=== PATIENT | male | born 1960 | race Caucasian/White ===

== ENCOUNTER 2018-04-17 10:06 | Emergency (ER) | payer SELFPAY ==
[~2018-04-17] VITALS: Ht 170.2 cm; Wt 88.9 kg
[~2018-04-17 10:06] MED LIST: ATEN-102 PO; BENA20 PO; CLOP75TA PO; GEMF600 PO; IBUP-232 PO; LOVA40TA PO
[2018-04-17 10:13] VITALS: BP 149/88; PULSE 57; RESP 18; TEMP 98; O2SAT 96
[2018-04-17] MEDS ORDERED: PRAV40TA2 PO (10:37)
[2018-04-17] MEDS ORDERED: GEMF600 PO (10:37)
[2018-04-17] MEDS ORDERED: BENA20TA PO (10:37)
[2018-04-17] MEDS ORDERED: ATEN50TA PO (10:37)
[2018-04-17] MEDS ORDERED: PLAV75TA29 PO (10:37)
[2018-04-17] MEDS ORDERED: MECLIZINE HCL 25 MG TAB PO ONE (11:45)
[2018-04-17] MEDS ORDERED: MECL-62 PO (11:54)
--- NOTE | 2018-04-17 11:54 | PD ---
HPI Chief Complaint: Dizziness Time Seen by Provider: 10:58 Travel History International Travel<30 days: No Contact w/Intl Traveler<30days: No Traveled to known affect area: No History of Present Illness HPI Is a 57-year-old man presents to the emergency department complaining of intermittent dizziness. Symptoms started this morning. The worse when he moves his head certain ways, but are improved if he keeps his head steady. He states still he has no symptoms. He has never had similar symptoms before. Otherwise had been feeling generally well and healthy. Does have a history of TIA in the past, is on Plavix now. The symptoms were unilateral numbness and weakness. No recent similar symptoms. Recent illness or injury. No numbness tingling weakness or other associated symptoms. No changes to hearing or vision. History Past Medical History Narrative Medical Hypertension Hyperlipidemia History of TIA Influenza Vaccination: No Social History Alcohol Use: No Tobacco Use: No Allergies-Medications (Allergen,Severity, Reaction): Coded Allergies: No Known Allergies (Verified Adverse Reaction, Unknown, 04/17/18) Reported Meds & Prescriptions Reported Meds & Active Scripts Active Reported Pravastatin 40 Mg Tab 80 Mg PO DAILY Lopid (Gemfibrozil) 600 Mg Tab 300 Mg PO DAILY Take 30 minutes prior to breakfast and dinner Plavix (Clopidogrel Bisulfate) 75 Mg Tab 75 Mg PO DAILY Benazepril (Benazepril HCl) 20 Mg Tab 20 Mg PO DAILY Atenolol 50 Mg Tab 50 Mg PO DAILY Review of Systems Except as stated in HPI: all other systems reviewed are Neg Physical Exam Narrative GENERAL: Well-appearing 57-year-old man, no acute distress. SKIN: Focused skin assessment warm/dry. HEAD: Atraumatic. Normocephalic. EYES: Pupils equal and round. No scleral icterus. No injection or drainage. ENT: No nasal bleeding or discharge. Mucous membranes pink and moist. NECK: Trachea midline. No JVD. CARDIOVASCULAR: Regular rate and rhythm. No murmur appreciated. RESPIRATORY: No accessory muscle use. Clear to auscultation. Breath sounds equal bilaterally. GASTROINTESTINAL: Abdomen soft, non-tender, nondistended. Hepatic and splenic margins not palpable. MUSCULOSKELETAL: No obvious deformities. No clubbing. No cyanosis. No edema. NEUROLOGICAL: Awake and alert. Cranial nerves II through XII are intact. Strength full and equal upper and lower extremity's. Normal finger to nose. Normal heel to munguia. Minimal left beating nystagmus. Katie-Hallpike: Patient with positive [place]-Hallpike on the right with up beating rotating torsional nystagmus with fatigue, negative on the left. Repeated with Godfrey. Data Data Last Documented VS Vital Signs Date Time Temp Pulse Resp B/P (MAP) Pulse Ox O2 Delivery O2 Flow Rate FiO2 04/17/18 10:35 54 04/17/18 10:13 98.0 18 149/88 (108) 96 Orders Orders Meclizine (Antivert) (04/17/18 11:45) [facility] Medical Decision Making Medical Screen Exam Complete: Yes Emergency Medical Condition: Yes Differential Diagnosis BPPV, TIA, CVA, vestibular neuritis, vestibular migraine, ICH, other Narrative Course Medical decision making 57-year-old male with history and physical exam suggestive of BPPV. He has a positive [place]-Hallpike on the right with confirmatory up beating torsional nystagmus. This is completely consistent with BPPV. He was counseled regarding this diagnosis. Godfrey was performed on the right 1. Will be given instructions for Godfrey at home, as well as meclizine. Diagnosis Primary Impression: Benign paroxysmal positional vertigo of right ear Additional Instructions: Use meclizine if needed for vertigo and dizziness for no more than 2-3 days. Do home Godfrey maneuvers as discussed several times daily until symptoms resolve. Return to the emergency department for any worsening symptoms, or any other new symptoms. Med/Other Pt SpecificInfo: Prescription(s) given Scripts Meclizine (Meclizine) 25 Mg Tab 25 MG PO TID Y for VERTIGO, #12 TAB 0 Refills Prov: Rufino Mcnulty MD 04/17/18 Disposition: 01 DISCHARGE HOME Condition: Stable Rufino Mcnulty MD Apr 17, 2018 11:54
[2018-04-17 12:48] VITALS: BP 145/88
--- NOTE | 2018-04-18 23:19 | EKG ---
Date Performed: 04/17/2018 Time Performed: 10:32:42 PTAGE: 57 years EKG: SINUS BRADYCARDIA INTRAVENTRICULAR CONDUCTION DELAY ABNORMAL ECG PREVIOUS TRACING : 04/02/2016 01.09 DOCTOR: Darryl Peterson Interpretating Date/Time 04/18/2018 23:05:57
== END 2018-04-17 12:54 | disposition home or self-care (01) ==
LOC: PHED 10:06
DX: H81.11 Benign paroxysmal vertigo, right ear (principal); I10 Essential (primary) hypertension; R53.1 Weakness; R20.0 Anesthesia of skin; R94.31 Abnormal electrocardiogram [ECG] [EKG]; Z79.02 Long term (current) use of antithrombotics/antiplatelets; Z86.73 Personal history of transient ischemic attack (TIA), and cerebral infarction without residual deficits
CPT/HCPCS: 93005; 99283

== ENCOUNTER 2018-04-19 07:55 | Emergency (ER) | payer SELFPAY ==
[~2018-04-19] VITALS: Ht 170.2 cm; Wt 89.3 kg
[~2018-04-19 07:55] MED LIST changes: -ATEN-102 PO; +ATEN50TA PO; -BENA20 PO; +BENA20TA PO; -CLOP75TA PO; -IBUP-232 PO; -LOVA40TA PO; +MECL-62 PO; +PLAV75TA29 PO; +PRAV40TA2 PO
[2018-04-19 08:00] VITALS: BP 173/97; PULSE 62; RESP 16; TEMP 97.7; O2SAT 97
--- NOTE | 2018-04-19 08:47 | PD ---
HPI Chief Complaint: Dizziness Time Seen by Provider: 08:23 Travel History International Travel<30 days: No Contact w/Intl Traveler<30days: No Traveled to known affect area: No History of Present Illness HPI 57-year-old male presents the ER for evaluation of dizziness. Patient was here 2 days ago and had typical symptoms of benign positional vertigo and was taught how to do Godfrey maneuver at home and was given a prescription for meclizine. Patient states that his symptoms improved yesterday but then suddenly today he started having symptoms again that made him worried and came to the ER. There is no new neurological symptoms, no weakness or blurry vision or sensory loss or speech problems. Patient has the same exact symptoms that he presented with 2 days, patient could not do Godfrey maneuver at home and was wondering if we can do anything here in the ER. Patient did not follow-up with any physician since last visit, denies any chest pain or shortness of breath or any other symptoms. PFSH Past Medical History Hx Anticoagulant Therapy: Yes (plavix) High Cholesterol: Yes Cerebrovascular Accident: Yes (tia) Diabetes: No Diminished Hearing: No Endocrine: No Gastrointestinal Disorders: Yes (IRRITABLE BOWEL SYNDROME ) GERD: Yes Genitourinary: No Hypertension: Yes Musculoskeletal: Yes (TENDONITIS IN ELBOWS AND WRISTS) Neurologic: Yes Psychiatric: No Reproductive: No Respiratory: No Immunizations Current: Yes Thyroid Disease: No Tetanus Vaccination: Unknown Influenza Vaccination: No Past Surgical History Abdominal Surgery: Yes (PT HAD SURG IN STOMACH FOR GERD -alfred) Tonsillectomy: Yes Other Surgery: Yes Social History Alcohol Use: No Tobacco Use: No Substance Use: No Allergies-Medications (Allergen,Severity, Reaction): Coded Allergies: No Known Allergies (Verified Adverse Reaction, Unknown, 04/19/18) Reported Meds & Prescriptions Reported Meds & Active Scripts Active Meclizine (Meclizine HCl) 25 Mg Tab 25 Mg PO TID PRN Reported Pravastatin 40 Mg Tab 80 Mg PO DAILY Lopid (Gemfibrozil) 600 Mg Tab 300 Mg PO DAILY Take 30 minutes prior to breakfast and dinner Plavix (Clopidogrel Bisulfate) 75 Mg Tab 75 Mg PO DAILY Benazepril (Benazepril HCl) 20 Mg Tab 20 Mg PO DAILY Atenolol 50 Mg Tab 50 Mg PO DAILY Review of Systems Except as stated in HPI: all other systems reviewed are Neg Physical Exam Narrative GENERAL: Alert oriented 3 no acute distress. SKIN: Focused skin assessment warm/dry. HEAD: Atraumatic. Normocephalic. EYES: Pupils equal and round. No scleral icterus. No injection or drainage. ENT: No nasal bleeding or discharge. Mucous membranes pink and moist. NECK: Trachea midline. No JVD. CARDIOVASCULAR: Regular rate and rhythm. No murmur appreciated. RESPIRATORY: No accessory muscle use. Clear to auscultation. Breath sounds equal bilaterally. GASTROINTESTINAL: Abdomen soft, non-tender, nondistended. Hepatic and splenic margins not palpable. MUSCULOSKELETAL: No obvious deformities. No clubbing. No cyanosis. No edema. NEUROLOGICAL: Awake and alert. No obvious cranial nerve deficits. Motor grossly within normal limits. Normal speech. PSYCHIATRIC: Appropriate mood and affect; insight and judgment normal. yashira hallpike: no nystagmus of dizziness. Data Data Last Documented VS Vital Signs Date Time Temp Pulse Resp B/P (MAP) Pulse Ox O2 Delivery O2 Flow Rate FiO2 04/19/18 09:16 60 16 153/93 (113) 97 04/19/18 08:34 Room Air 04/19/18 08:00 97.7 Orders Orders Ed Discharge Order (04/19/18 08:46) MDM Medical Decision Making Medical Screen Exam Complete: Yes Emergency Medical Condition: Yes Differential Diagnosis Benign positional vertigo, Mnire's disease, dehydration Narrative Course 57-year-old male presents the ER for evaluation of dizziness when he moves his neck to the right of the left. Patient was here before 2 days ago for same reason and says that his symptoms got better with meclizine and after the Godfrey maneuver in the ER. We did the yashira hallpike here and was negative both sides, patient states that his symptoms improved after he arrived here in the ER! He says he was having severe dizziness and it made him worried and that is why he came to the ER but now it feels better. I had the patient walk around in the ER and he had no dizziness or gait imbalance. For now there is no need for any further investigations I gave the patient to have more pills of meclizine and I give him the name of ENT doctor so that he can follow-up with him meanwhile if symptoms change or do not improve he can come to the ER for further evaluation. Diagnosis Primary Impression: Benign positional vertigo Qualified Codes: H81.10 - Benign paroxysmal vertigo, unspecified ear Referrals: Tramaine Ralph MD Additional Instructions: Follow-up with ENT and return to ER if symptoms change or do not improve. Scripts Meclizine (Meclizine) 25 Mg Tab 25 MG PO TID Y for VERTIGO, #12 TAB 0 Refills Prov: Anthony Mauricio MD 04/19/18 Disposition: 01 DISCHARGE HOME Condition: Stable Anthony Mauricio MD Apr 19, 2018 08:47
[2018-04-19] MEDS ORDERED: MECL-62 PO (08:48)
[2018-04-19 09:16] VITALS: BP 153/93
== END 2018-04-19 09:17 | disposition home or self-care (01) ==
LOC: PHED 07:55
DX: H81.10 Benign paroxysmal vertigo, unspecified ear (principal); E78.00 Pure hypercholesterolemia, unspecified; Z86.73 Personal history of transient ischemic attack (TIA), and cerebral infarction without residual deficits; I10 Essential (primary) hypertension; K21.9 Gastro-esophageal reflux disease without esophagitis; K58.9 Irritable bowel syndrome, unspecified; Z79.01 Long term (current) use of anticoagulants
CPT/HCPCS: 99283